=== PATIENT | female | born 1950 | race African-American/Black ===

== ENCOUNTER 2017-04-01 15:48 | Emergency (ER) | payer OTHER ==
[2017-04-01 16:05] VITALS: BP 156/77; PULSE 79; TEMP 98; BMI 27.4
--- NOTE | 2017-04-01 16:51 | PDOC ---
History of Present Illness - General Chief Complaint: Injury Stated Complaint: LT FINGER WOUND Time Seen by Provider: 04/01/17 16:48 History Source: Patient Exam Limitations: No Limitations - History of Present Illness Initial Comments: 04/01/17 16:51 67 yr female with ring stuck on the finger for 7 days right middle digit. 04/01/17 17:08 Past History - Past Medical History Allergies/Adverse Reactions: Allergies Allergy/AdvReac Type Severity Reaction Status Date / Time No Known Allergies Allergy Verified 04/01/17 16:05 Home Medications: Ambulatory Orders Donepezil HCl [Aricept -] 10 g PO ASDIR 04/01/17 Omeprazole Magnesium [Prilosec Otc] 20 mg PO ASDIR 04/01/17 Anemia: No Asthma: No Cancer: No Cardiac Disorders: No CVA: No COPD: No CHF: No Dementia: No Diabetes: No GI Disorders: Yes (GERD) Disorders: No HTN: Yes Hypercholesterolemia: No Liver Disease: No Seizures: No Thyroid Disease: No - Surgical History Abdominal Surgery: Yes (Abdominoplasty) Appendectomy: Yes Cardiac Surgery: No Cholecystectomy: No Lung Surgery: No Neurologic Surgery: No Orthopedic Surgery: Yes (Left Shoulder Arthroscopy,Fx Left Tibia) - Suicide/Smoking/Psychosocial Hx Smoking Status: No Smoking History: Never smoked Have you smoked in the past 12 months: No Number of Cigarettes Smoked Daily: 0 Information on smoking cessation initiated: No Hx Alcohol Use: No Drug/Substance Use Hx: No Substance Use Type: None Hx Substance Use Treatment: No Review of Systems - Review of Systems Able to Perform ROS?: Yes Is the patient limited Qatari proficient: No Musculoskeletal: Yes: Symptoms Reported *Physical Exam - Vital Signs Last Vital Signs Temp Pulse Resp BP Pulse Ox 98 F 79 18 156/77 99 04/01/17 16:01 04/01/17 16:01 04/01/17 16:01 04/01/17 16:01 04/01/17 16:01 - Physical Exam General Appearance: Yes: Nourished, Appropriately Dressed HEENT: positive: EOMI, DANNY Extremity: positive: Normal Capillary Refill, Other (right middle digit with ring that is stuck ) Integumentary: positive: Normal Color, Dry, Warm Neurologic: positive: Fully Oriented, Alert, Normal Mood/Affect, Normal Response , Motor Strength 5/5 Procedures - Consent Consent obtained: Verbal, From Patient (consent obtained to remove yellow colored ring with white/clear colored stones) Medical Decision Making - Medical Decision Making 04/01/17 17:09 cc: ring finger with ring stuck on it for 7 days right middle digit. unable to remove at home. pt gave verbal consent to remove the yellow ring with the ring cutter. ring removed with the manual ring cutter nv intact pt tolerated procedure well. 04/01/17 17:18 *DC/Admit/Observation/Transfer Diagnosis at time of Disposition: Foreign body finger - Discharge Dispostion Disposition: HOME Condition at time of disposition: Good - Referrals - Patient Instructions Additional Instructions: please keep the area clean and dry with soap and water apply bacitracin and bandaid once a day for 3 days until healed - Post Discharge Activity
== END 2017-04-01 17:23 | disposition home or self-care (01) ==
LOC: JERFT 15:48
DX: S60.442A External constriction of right middle finger, initial encounter (principal); W49.04XA Ring or other jewelry causing external constriction, initial encounter; Y93.89 Activity, other specified; Y92.038 Other place in apartment as the place of occurrence of the external cause
CPT/HCPCS: 99281-25

== ENCOUNTER 2020-10-26 19:55 | Inpatient (IN) | payer OTHER ==
[2020-10-26 22:08] LABS: BASO % 0.3 % (0-2.0); EOS % 0.1 % (0-4.5); HEMATOCRIT 33.9 % (32.4-45.2); HEMOGLOBIN 11.5 GM/dL (10.7-15.3); LYMPH % 18.8 % (8-40); MCH 29.9 pg (25.7-33.7); MEAN CELL VOLUME 87.9 fl (80-96); MEAN PLT VOLUME 9.2 fl (7.5-11.1); MONO % 10.2 % (3.8-10.2); NEUT % 70.6 % (42.8-82.8); PLATELET COUNT 247 10^3/uL (134-434); RBC 3.85 M/mm3 (3.60-5.2); RDW 14.2 % (11.6-15.6); WHITE BLOOD COUNT 11.8 K/mm3 (4.0-10.0)
[2020-10-26 22:09] LABS: URINE APPEARANCE CLEAR; URINE BILIRUBIN NEGATIVE (NEGATIVE); URINE COLOR YELLOW; URINE GLUCOSE (UA) NEGATIVE (NEGATIVE); URINE KETONE NEGATIVE (NEGATIVE); URINE LEUK ESTERASE NEGATIVE (NEGATIVE); URINE NITRITE NEGATIVE (NEGATIVE); URINE PROTEIN TRACE (NEGATIVE)
[2020-10-26] MEDS: SODIUM CHLORIDE 1,000 ML IV SCH (22:13)
[2020-10-26 22:22] LABS: INR 1.17 (0.83-1.09); PROTHROMBIN TIME (PATIENT) 14.4 SEC (9.7-13.0)
[2020-10-26 22:24] LABS: ACTIVATED PTT 24.8 SECONDS (25.2-36.5)
[2020-10-26 22:27] LABS: CHLORIDE 108 mmol/L (98-107); SODIUM 143 mmol/L (136-145)
[2020-10-26 22:30] LABS: ALBUMIN 3.1 g/dl (3.4-5.0); CALCIUM 8.4 mg/dL (8.5-10.1)
[2020-10-26 22:31] LABS: ANION GAP 6 MMOL/L (8-16); BLOOD UREA NITROGEN 22.1 mg/dL (7-18); CO2 29 mmol/L (21-32); GLUCOSE,RANDOM 87 mg/dL (74-106)
[2020-10-26 22:33] LABS: SGOT/AST 38 U/L (15-37); SGPT/ALT 42 U/L (13-61)
[2020-10-26 22:34] LABS: CHOLESTEROL 169 mg/dL (50-200); CREATININE 1.4 mg/dL (0.55-1.3); TRIGLYCERIDES 81 mg/dL (0-150)
[2020-10-26 22:35] LABS: BILIRUBIN,TOTAL 0.3 mg/dL (0.2-1); HDL CHOLESTEROL 52 mg/dL (40-60); LDL CHOLESTEROL (ONLY SJRH) 94 mg/dL (5-100)
[2020-10-26 22:36] LABS: ALK PHOS 76 U/L (45-117)
[2020-10-26] MEDS ORDERED: D5-1/2NS+10 MEQ KCL - 10 MEQ/1,000 ML INFUS.BAG IV SCH (23:45)
[2020-10-27] MEDS: PANTOPRAZOLE 40 MG TABLET PO SCH (09:53)
[2020-10-27 10:00] LABS: BASO % 0.6 % (0-2.0); EOS % 0.1 % (0-4.5); LYMPH % 23.1 % (8-40); MCH 29.6 pg (25.7-33.7); MCHC 33.4 g/dl (32.0-36.0); MEAN CELL VOLUME 88.7 fl (80-96); MEAN PLT VOLUME 9.4 fl (7.5-11.1); NEUT % 68.2 % (42.8-82.8); PLATELET COUNT 243 10^3/uL (134-434); RBC 4.06 M/mm3 (3.60-5.2); RDW 13.9 % (11.6-15.6); WHITE BLOOD COUNT 10.9 K/mm3 (4.0-10.0)
[2020-10-27] MEDS ORDERED: D5-1/2NS+10 MEQ KCL - 10 MEQ/1,000 ML INFUS.BAG IV SCH (11:19)
[2020-10-27 14:00] LABS: CALCIUM 8.7 mg/dL (8.5-10.1)
[2020-10-27 14:01] LABS: BLOOD UREA NITROGEN 15.1 mg/dL (7-18)
[2020-10-27 14:04] LABS: CREATININE 1.2 mg/dL (0.55-1.3)
[2020-10-27] MEDS: D5-1/2NS+10 MEQ KCL - 10 MEQ/1,000 ML INFUS.BAG IV SCH (18:48)
[2020-10-27] MEDS ORDERED: levETIRAcetam 500 MG/5 ML INJECTION VIAL IVPB ONE (21:53)
[2020-10-28] MEDS: levETIRAcetam 500 MG TABLET (FP) PO SCH ×2 (07:56→22:14)
[2020-10-28 09:03] LABS: BASO % 0.4 % (0-2.0); EOS % 0.6 % (0-4.5); HEMATOCRIT 35.3 % (32.4-45.2); HEMOGLOBIN 11.8 GM/dL (10.7-15.3); LYMPH % 35.8 % (8-40); MCH 29.3 pg (25.7-33.7); MCHC 33.5 g/dl (32.0-36.0); MEAN CELL VOLUME 87.4 fl (80-96); MEAN PLT VOLUME 9.1 fl (7.5-11.1); MONO % 8.3 % (3.8-10.2); NEUT % 54.9 % (42.8-82.8); PLATELET COUNT 230 10^3/uL (134-434); RBC 4.04 M/mm3 (3.60-5.2); WHITE BLOOD COUNT 8.8 K/mm3 (4.0-10.0)
[2020-10-28 09:10] LABS: BLOOD UREA NITROGEN 10.5 mg/dL (7-18); CALCIUM 8.7 mg/dL (8.5-10.1)
[2020-10-28 09:13] LABS: CREATININE 1.2 mg/dL (0.55-1.3)
[2020-10-28] MEDS: PANTOPRAZOLE 40 MG TABLET PO SCH (09:21)
[2020-10-28] MEDS: SODIUM CHLORIDE 1,000 ML IV SCH ×2 (09:21→22:14)
[2020-10-28] MEDS: PARoxetine HCL 10 MG TABLET PO SCH (12:08)
[2020-10-28] MEDS ORDERED: PT OWN MED DRAWER 7, Y5N ONE (13:22)
[2020-10-28] MEDS: D5-1/2NS+10 MEQ KCL - 10 MEQ/1,000 ML INFUS.BAG IV SCH (18:38)
[2020-10-28] MEDS ORDERED: QUEtiapine FUMARATE 100 MG TABLET (FP) PO SCH ×3 (21:35→22:00)
[2020-10-28] MEDS ORDERED: MIRTAZAPINE 15 MG TABLET (FP) PO SCH (22:00)
[2020-10-28] MEDS: QUEtiapine FUMARATE 100 MG TABLET (FP) PO SCH ×2 (22:13→22:18)
[2020-10-28 23:18] VITALS: BMI 22.2
[2020-10-29 06:44] VITALS: PULSE 80
[2020-10-29 08:46] LABS: BASO % 0.4 % (0-2.0); EOS % 1.6 % (0-4.5); HEMATOCRIT 33.8 % (32.4-45.2); HEMOGLOBIN 11.4 GM/dL (10.7-15.3); LYMPH % 34.3 % (8-40); MCH 29.6 pg (25.7-33.7); MCHC 33.8 g/dl (32.0-36.0); MEAN CELL VOLUME 87.7 fl (80-96); MEAN PLT VOLUME 8.9 fl (7.5-11.1); MONO % 8.6 % (3.8-10.2); NEUT % 55.1 % (42.8-82.8); PLATELET COUNT 213 10^3/uL (134-434); RBC 3.85 M/mm3 (3.60-5.2); RDW 13.7 % (11.6-15.6); WHITE BLOOD COUNT 8.8 K/mm3 (4.0-10.0)
[2020-10-29] MEDS ORDERED: PT OWN MED DRAWER 7, Y5N ONE ×2 (09:15→11:49)
[2020-10-29] MEDS: levETIRAcetam 500 MG TABLET (FP) PO SCH (09:18)
[2020-10-29] MEDS: PANTOPRAZOLE 40 MG TABLET PO SCH (09:18)
[2020-10-29 09:31] VITALS: BP 131/74; TEMP 98.5
[2020-10-29 09:31] LABS: CALCIUM 8.6 mg/dL (8.5-10.1)
[2020-10-29 09:35] LABS: CREATININE 1.1 mg/dL (0.55-1.3)
[2020-10-29] MEDS: PARoxetine HCL 10 MG TABLET PO SCH (11:50)
[2020-10-29] MEDS ORDERED: levETIRAcetam 500 MG TABLET (FP) PO SCH (22:00)
[2020-10-30 00:10] LABS: CK-MM 100 % (97-100)
== END 2020-10-29 17:00 | disposition home health service (06) | DRG 101 ==
LOC: JER 19:55 → JERBED 23:00 → J6S 10-27 01:49
PROVIDERS: ADMIT Internal Medicine; ATTEND Internal Medicine
DX: G40.211 Localization-related (focal) (partial) symptomatic epilepsy and epileptic syndromes with complex partial seizures, intractable, with status epilepticus (principal); M62.82 Rhabdomyolysis; N17.9 Acute kidney failure, unspecified; G30.1 Alzheimer's disease with late onset; R63.0 Anorexia; R41.82 Altered mental status, unspecified; I10 Essential (primary) hypertension; G83.84 Todd's paralysis (postepileptic); D72.829 Elevated white blood cell count, unspecified; K21.9 Gastro-esophageal reflux disease without esophagitis; F02.80 Dementia in other diseases classified elsewhere, unspecified severity, without behavioral disturbance, psychotic disturbance, mood disturbance, and anxiety
CPT/HCPCS: 36415; 70450-TC; 71045-TC-FY; 80048; 80053; 80061; 81003; 82550; 82552; 82553; 82607; 83036; 84443; 84484; 85025; 85610; 85730; 86780; 86850; 86900; 86901; 87086; 93005; 93010; 97116-GP; 97162-GP; 99285-25; C9803; U0003; U0005

== ENCOUNTER 2020-11-08 13:11 | Inpatient (IN) | payer OTHER ==
[2020-11-08] MEDS ORDERED: LORazepam 2 MG/ML SDV VIAL IVPUSH ONE (14:16)
[2020-11-08 14:35] LABS: BASO % 0.1 % (0-2.0); HEMATOCRIT 34.9 % (32.4-45.2); HEMOGLOBIN 11.9 GM/dL (10.7-15.3); MCHC 34.1 g/dl (32.0-36.0); MEAN PLT VOLUME 8.7 fl (7.5-11.1); MONO % 4.2 % (3.8-10.2); NEUT % 89.7 % (42.8-82.8); PLATELET COUNT 316 10^3/uL (134-434); RBC 3.96 M/mm3 (3.60-5.2); RDW 13.7 % (11.6-15.6); WHITE BLOOD COUNT 10.3 K/mm3 (4.0-10.0)
[2020-11-08] MEDS ORDERED: SODIUM CHLORIDE 0.9% 500 ML INFUS.BAG IV ONE (14:36)
[2020-11-08] MEDS ORDERED: CEFTRIAXONE 1,000 MG in DEXTROSE 5%-WATER - 50 ML IVPB ONE (14:39)
[2020-11-08 14:46] LABS: CHLORIDE 103 mmol/L (98-107); SODIUM 139 mmol/L (136-145)
[2020-11-08 14:48] LABS: ALBUMIN 3.3 g/dl (3.4-5.0); ANION GAP 7 MMOL/L (8-16); CALCIUM 9.5 mg/dL (8.5-10.1); CO2 29 mmol/L (21-32); GLUCOSE,RANDOM 130 mg/dL (74-106)
[2020-11-08 14:49] LABS: BLOOD UREA NITROGEN 14.7 mg/dL (7-18)
[2020-11-08 14:52] LABS: CREATININE 1.3 mg/dL (0.55-1.3); SGOT/AST 14 U/L (15-37); SGPT/ALT 21 U/L (13-61)
[2020-11-08 14:53] LABS: BILIRUBIN,TOTAL 0.5 mg/dL (0.2-1); TOT PROT 7.8 g/dl (6.4-8.2)
[2020-11-08 14:54] LABS: ALK PHOS 92 U/L (45-117)
[2020-11-08] MEDS ORDERED: CEFTRIAXONE 1 GM/50 ML BAG ONE (14:54)
[2020-11-08 15:11] LABS: LACTIC ACID 2.5 mmol/L (0.4-2.0)
[2020-11-08 15:12] LABS: MAGNESIUM 2.1 mg/dL (1.8-2.4)
[2020-11-08 15:44] LABS: EPI CELLS 29 /uL (0-25.1); HYALINE CASTS 357 /uL (0-3.1); PH,URINE 7.5 (5.0-8.0); URINE APPEARANCE TURBID; URINE BACTERIA 2795 /uL (0-1359); URINE BILIRUBIN NEGATIVE (NEGATIVE); URINE COLOR YELLOW; URINE GLUCOSE (UA) NEGATIVE (NEGATIVE); URINE KETONE NEGATIVE (NEGATIVE); URINE LEUK ESTERASE 3+ (NEGATIVE); URINE NITRITE NEGATIVE (NEGATIVE); URINE PROTEIN 2+ (NEGATIVE); URINE WBC 30677 /uL (0-25.8)
[2020-11-08 15:45] LABS: URINE RBC 416.3 /uL (0-23.9)
[2020-11-08 15:58] LABS: URINE CRYSTALS NONE SEEN /hpf
[2020-11-08] MEDS ORDERED: D5-1/2NS+10 MEQ KCL - 10 MEQ/1,000 ML INFUS.BAG IV SCH (18:15)
[2020-11-08] MEDS: PANTOPRAZOLE 40 MG TABLET PO SCH (18:41)
[2020-11-08] MEDS ORDERED: ENOXAPARIN NA (PORCINE) 40 MG/0.4 ML DISP.SYRIN SQ ONE (18:59)
[2020-11-08] MEDS: ENOXAPARIN NA (PORCINE) 40 MG/0.4 ML DISP.SYRIN SQ SCH (19:02)
[2020-11-08] MEDS: D5-1/2NS+10 MEQ KCL - 10 MEQ/1,000 ML INFUS.BAG IV SCH (22:20)
[2020-11-08] MEDS: levETIRAcetam 500 MG TABLET (FP) PO SCH (22:50)
[2020-11-08] MEDS: MIRTAZAPINE 15 MG TABLET (FP) PO SCH (22:50)
[2020-11-09 01:24] VITALS: BMI 22.1
[2020-11-09] MEDS ORDERED: PT OWN MED DRAWER 7, Y5N ONE (09:36)
[2020-11-09 09:50] LABS: BASO % 0.2 % (0-2.0); EOS % 0.1 % (0-4.5); HEMATOCRIT 31.6 % (32.4-45.2); HEMOGLOBIN 10.7 GM/dL (10.7-15.3); LYMPH % 22.6 % (8-40); MCH 29.8 pg (25.7-33.7); MCHC 33.8 g/dl (32.0-36.0); MEAN CELL VOLUME 88.4 fl (80-96); MEAN PLT VOLUME 8.8 fl (7.5-11.1); MONO % 5.3 % (3.8-10.2); NEUT % 71.8 % (42.8-82.8); PLATELET COUNT 281 10^3/uL (134-434); RBC 3.58 M/mm3 (3.60-5.2); WHITE BLOOD COUNT 10.4 K/mm3 (4.0-10.0)
[2020-11-09] MEDS: levETIRAcetam 500 MG TABLET (FP) PO SCH ×2 (10:11→21:48)
[2020-11-09] MEDS: ENOXAPARIN NA (PORCINE) 40 MG/0.4 ML DISP.SYRIN SQ SCH (10:11)
[2020-11-09] MEDS: PANTOPRAZOLE 40 MG TABLET PO SCH (10:11)
[2020-11-09 10:25] LABS: BLOOD UREA NITROGEN 17.5 mg/dL (7-18); CALCIUM 8.8 mg/dL (8.5-10.1)
[2020-11-09 10:28] LABS: CREATININE 1.2 mg/dL (0.55-1.3)
[2020-11-09] MEDS: PARoxetine HCL 10 MG TABLET PO SCH (11:36)
[2020-11-09] MEDS ORDERED: cefTRIAXone SODIUM 1 GM VIAL ONE (13:25)
[2020-11-09] MEDS ORDERED: DEXTROSE 5%-WATER - 50 ML IVPB ONE (13:25)
[2020-11-09] MEDS: CEFTRIAXONE 1 GM in DEXTROSE 5%-WATER - 50 ML IVPB SCH (13:31)
[2020-11-09] MEDS: D5-1/2NS+10 MEQ KCL - 10 MEQ/1,000 ML INFUS.BAG IV SCH (21:47)
[2020-11-09] MEDS: MIRTAZAPINE 15 MG TABLET (FP) PO SCH (21:48)
[2020-11-10] MEDS ORDERED: cefTRIAXone SODIUM 1 GM VIAL ONE (09:21)
[2020-11-10] MEDS: CEFTRIAXONE 1 GM in DEXTROSE 5%-WATER - 50 ML IVPB SCH (09:26)
[2020-11-10] MEDS: ENOXAPARIN NA (PORCINE) 40 MG/0.4 ML DISP.SYRIN SQ SCH (09:27)
[2020-11-10] MEDS: PARoxetine HCL 10 MG TABLET PO SCH (09:27)
[2020-11-10] MEDS: levETIRAcetam 500 MG TABLET (FP) PO SCH ×2 (09:27→21:20)
[2020-11-10] MEDS: PANTOPRAZOLE 40 MG TABLET PO SCH (09:27)
[2020-11-10] MEDS: MIRTAZAPINE 15 MG TABLET (FP) PO SCH (21:20)
[2020-11-10] MEDS: D5-1/2NS+10 MEQ KCL - 10 MEQ/1,000 ML INFUS.BAG IV SCH (22:23)
[2020-11-11] MEDS ORDERED: PT OWN MED DRAWER 7, Y5N ONE ×2 (05:41→10:32)
[2020-11-11 08:53] LABS: BASO % 0.4 % (0-2.0); EOS % 1.2 % (0-4.5); HEMATOCRIT 29.9 % (32.4-45.2); MCH 29.7 pg (25.7-33.7); MCHC 33.6 g/dl (32.0-36.0); MEAN CELL VOLUME 88.4 fl (80-96); MEAN PLT VOLUME 8.1 fl (7.5-11.1); MONO % 7.9 % (3.8-10.2); NEUT % 55.5 % (42.8-82.8); PLATELET COUNT 265 10^3/uL (134-434); RBC 3.39 M/mm3 (3.60-5.2); RDW 13.6 % (11.6-15.6); WHITE BLOOD COUNT 6.4 K/mm3 (4.0-10.0)
[2020-11-11 09:17] LABS: CALCIUM 8.8 mg/dL (8.5-10.1)
[2020-11-11 09:18] LABS: BLOOD UREA NITROGEN 8.4 mg/dL (7-18)
[2020-11-11 09:21] LABS: CREATININE 0.9 mg/dL (0.55-1.3)
[2020-11-11] MEDS ORDERED: DEXTROSE 5%-WATER - 50 ML IVPB ONE (10:34)
[2020-11-11] MEDS ORDERED: cefTRIAXone SODIUM 1 GM VIAL ONE (10:34)
[2020-11-11] MEDS: CEFTRIAXONE 1 GM in DEXTROSE 5%-WATER - 50 ML IVPB SCH (10:42)
[2020-11-11] MEDS: PANTOPRAZOLE 40 MG TABLET PO SCH (10:46)
[2020-11-11] MEDS: levETIRAcetam 500 MG TABLET (FP) PO SCH ×2 (10:46→21:46)
[2020-11-11] MEDS: MULTIVITAMINS THER W-MINERALS COMBO TABLET (FP) PO SCH (10:47)
[2020-11-11] MEDS: PARoxetine HCL 10 MG TABLET PO SCH (10:47)
[2020-11-11] MEDS: ENOXAPARIN NA (PORCINE) 40 MG/0.4 ML DISP.SYRIN SQ SCH (10:47)
[2020-11-11] MEDS: D5-1/2NS+10 MEQ KCL - 10 MEQ/1,000 ML INFUS.BAG IV SCH (21:46)
[2020-11-11] MEDS: MIRTAZAPINE 15 MG TABLET (FP) PO SCH (21:46)
[2020-11-12 08:21] LABS: BASO % 0.4 % (0-2.0); HEMATOCRIT 30.9 % (32.4-45.2); HEMOGLOBIN 10.6 GM/dL (10.7-15.3); LYMPH % 45.4 % (8-40); MCHC 34.1 g/dl (32.0-36.0); MEAN CELL VOLUME 87.9 fl (80-96); MEAN PLT VOLUME 8.6 fl (7.5-11.1); MONO % 7.5 % (3.8-10.2); NEUT % 44.7 % (42.8-82.8); PLATELET COUNT 277 10^3/uL (134-434); RBC 3.52 M/mm3 (3.60-5.2); RDW 13.5 % (11.6-15.6); WHITE BLOOD COUNT 6.8 K/mm3 (4.0-10.0)
[2020-11-12 08:51] LABS: CALCIUM 8.8 mg/dL (8.5-10.1)
[2020-11-12 08:52] LABS: BLOOD UREA NITROGEN 8.4 mg/dL (7-18)
[2020-11-12 08:55] LABS: CREATININE 0.8 mg/dL (0.55-1.3)
[2020-11-12] MEDS ORDERED: CEFUROXIME AXETIL 500 MG TABLET PO SCH (10:00)
[2020-11-12] MEDS ORDERED: PT OWN MED DRAWER 7, Y5N ONE (10:28)
[2020-11-12] MEDS: ENOXAPARIN NA (PORCINE) 40 MG/0.4 ML DISP.SYRIN SQ SCH (10:40)
[2020-11-12] MEDS: levETIRAcetam 500 MG TABLET (FP) PO SCH (11:35)
[2020-11-12] MEDS: PARoxetine HCL 10 MG TABLET PO SCH (11:35)
[2020-11-12] MEDS: PANTOPRAZOLE 40 MG TABLET PO SCH (11:35)
[2020-11-12] MEDS: MULTIVITAMINS THER W-MINERALS COMBO TABLET (FP) PO SCH (11:35)
[2020-11-12 14:55] VITALS: BP 129/53; PULSE 75; TEMP 98.4
== END 2020-11-12 16:48 | disposition home or self-care (01) | DRG 689 ==
LOC: JER 13:11 → JERBED 14:37 → J6S 21:27
PROVIDERS: ADMIT Internal Medicine; ATTEND Internal Medicine
DX: N39.0 Urinary tract infection, site not specified (principal); G93.41 Metabolic encephalopathy; M62.82 Rhabdomyolysis; E87.2 Acidosis; I69.354 Hemiplegia and hemiparesis following cerebral infarction affecting left non-dominant side; B95.1 Streptococcus, group B, as the cause of diseases classified elsewhere; G40.909 Epilepsy, unspecified, not intractable, without status epilepticus; I10 Essential (primary) hypertension; K21.9 Gastro-esophageal reflux disease without esophagitis; M62.81 Muscle weakness (generalized); R41.82 Altered mental status, unspecified; D72.829 Elevated white blood cell count, unspecified; G47.00 Insomnia, unspecified; F41.9 Anxiety disorder, unspecified; G83.84 Todd's paralysis (postepileptic); R26.81 Unsteadiness on feet; R50.9 Fever, unspecified; G30.9 Alzheimer's disease, unspecified; F02.80 Dementia in other diseases classified elsewhere, unspecified severity, without behavioral disturbance, psychotic disturbance, mood disturbance, and anxiety
CPT/HCPCS: 36415; 70450-TC; 80048; 80053; 80177; 81003; 82550; 82553; 82962; 83605; 83735; 84484; 85025; 87040; 87077; 87086; 93005; 93010; 97116-GP; 97162-GP; 99285-25; C9803; U0003; U0005

== ENCOUNTER 2020-11-25 23:56 | Observation (INO) | payer OTHER ==
[2020-11-26] MEDS ORDERED: levETIRAcetam 500 MG/5 ML ORAL SOLUTION (UNIT-DOSE CUPS) PO ONE (00:34)
[2020-11-26] MEDS ORDERED: levETIRAcetam 500 MG TABLET (FP) PO ONE ×3 (00:57→13:36)
[2020-11-26] MEDS ORDERED: levETIRAcetam 500 MG/5 ML INJECTION VIAL IVPB ONE ×2 (01:05→01:49)
[2020-11-26 02:06] LABS: BASO % 0.3 % (0-2.0); EOS % 0.9 % (0-4.5); HEMATOCRIT 33.6 % (32.4-45.2); HEMOGLOBIN 11.2 GM/dL (10.7-15.3); LYMPH % 30.4 % (8-40); MCHC 33.2 g/dl (32.0-36.0); MEAN CELL VOLUME 87.3 fl (80-96); MEAN PLT VOLUME 8.2 fl (7.5-11.1); MONO % 8.2 % (3.8-10.2); NEUT % 60.2 % (42.8-82.8); PLATELET COUNT 296 10^3/uL (134-434); RBC 3.85 M/mm3 (3.60-5.2); RDW 14.3 % (11.6-15.6); WHITE BLOOD COUNT 9.1 K/mm3 (4.0-10.0)
[2020-11-26 02:09] LABS: PH,URINE 7.5 (5.0-8.0); URINE APPEARANCE CLEAR; URINE BILIRUBIN NEGATIVE (NEGATIVE); URINE COLOR YELLOW; URINE GLUCOSE (UA) NEGATIVE (NEGATIVE); URINE KETONE NEGATIVE (NEGATIVE); URINE LEUK ESTERASE NEGATIVE (NEGATIVE); URINE NITRITE NEGATIVE (NEGATIVE); URINE PROTEIN NEGATIVE (NEGATIVE); URINE UROBILINOGEN 0.2 mg/dL (0.2-1.0)
[2020-11-26 02:14] LABS: INR 1.18 (0.83-1.09); PROTHROMBIN TIME (PATIENT) 13.2 SEC (9.7-13.0)
[2020-11-26 02:17] LABS: ACTIVATED PTT 28.6 SECONDS (25.2-36.5)
[2020-11-26 02:23] LABS: CHLORIDE 108 mmol/L (98-107); SODIUM 142 mmol/L (136-145)
[2020-11-26 02:25] LABS: CALCIUM 10.1 mg/dL (8.5-10.1)
[2020-11-26 02:26] LABS: ALBUMIN 3.1 g/dl (3.4-5.0); ANION GAP 7 MMOL/L (8-16); BLOOD UREA NITROGEN 10.2 mg/dL (7-18); CO2 28 mmol/L (21-32); GLUCOSE,RANDOM 102 mg/dL (74-106)
[2020-11-26 02:31] LABS: BILIRUBIN,TOTAL 0.3 mg/dL (0.2-1); CREATININE 1.1 mg/dL (0.55-1.3); SGOT/AST 19 U/L (15-37); SGPT/ALT 18 U/L (13-61); TOT PROT 7.4 g/dl (6.4-8.2)
[2020-11-26 02:32] LABS: ALK PHOS 78 U/L (45-117)
[2020-11-26 03:04] LABS: MAGNESIUM 2.1 mg/dL (1.8-2.4)
[2020-11-26] MEDS ORDERED: ACETAMINOPHEN 325 MG TABLET (FP) PO PRN (07:42)
[2020-11-26] MEDS ORDERED: HEPARIN NA (PORCINE) 5,000 UNITS/ML 1ML VIAL ONE ×2 (11:00→17:36)
[2020-11-26] MEDS: HEPARIN NA (PORCINE) 5,000 UNITS/ML 1ML VIAL SQ SCH ×2 (11:05→17:56)
[2020-11-26] MEDS ORDERED: CEFTRIAXONE 1 GM in DEXTROSE 5%-WATER - 50 ML IVPB SCH (12:30)
[2020-11-26] MEDS ORDERED: MIRTAZAPINE 15 MG TABLET (FP) PO SCH (22:00)
[2020-11-26] MEDS ORDERED: LORazepam 2 MG/ML SDV VIAL IVPUSH SCH (22:00)
[2020-11-27] MEDS: HEPARIN NA (PORCINE) 5,000 UNITS/ML 1ML VIAL SQ SCH ×3 (03:07→17:23)
[2020-11-27] MEDS ORDERED: MIRTAZAPINE 15 MG TABLET (FP) PO PRN (05:59)
[2020-11-27] MEDS: levETIRAcetam 500 MG/5 ML INJECTION VIAL IVPB SCH ×2 (09:33→22:05)
[2020-11-27] MEDS: PARoxetine HCL 10 MG TABLET PO SCH (09:33)
[2020-11-27] MEDS ORDERED: PHENOBARBITAL IVPB SCH (10:00)
[2020-11-27] MEDS ORDERED: PHENobarbital SODIUM 130 MG/1 ML VIAL IV SCH (10:00)
[2020-11-27] MEDS ORDERED: PHENobarbital SODIUM 65 MG/1 ML VIAL IVPB SCH (10:00)
[2020-11-27] MEDS ORDERED: SODIUM CHLORIDE IVPB SCH (10:00)
[2020-11-27 11:59] LABS: BASO % 0.6 % (0-2.0); HEMATOCRIT 33.8 % (32.4-45.2); HEMOGLOBIN 11.3 GM/dL (10.7-15.3); LYMPH % 39.1 % (8-40); MCH 29.5 pg (25.7-33.7); MCHC 33.4 g/dl (32.0-36.0); MEAN CELL VOLUME 88.3 fl (80-96); MEAN PLT VOLUME 8.9 fl (7.5-11.1); MONO % 8.6 % (3.8-10.2); NEUT % 50.7 % (42.8-82.8); PLATELET COUNT 270 10^3/uL (134-434); RBC 3.83 M/mm3 (3.60-5.2); RDW 14.6 % (11.6-15.6); WHITE BLOOD COUNT 5.8 K/mm3 (4.0-10.0)
[2020-11-27 12:24] LABS: ALBUMIN 3.2 g/dl (3.4-5.0); CALCIUM 8.9 mg/dL (8.5-10.1)
[2020-11-27 12:25] LABS: BLOOD UREA NITROGEN 10.1 mg/dL (7-18); MAGNESIUM 2.3 mg/dL (1.8-2.4)
[2020-11-27 12:28] LABS: BILIRUBIN,TOTAL 0.4 mg/dL (0.2-1); PHOSPHOROUS 3.2 mg/dL (2.5-4.9)
[2020-11-27 12:29] LABS: TOT PROT 7.2 g/dl (6.4-8.2)
[2020-11-27 20:52] VITALS: BMI 20.5
[2020-11-28] MEDS: HEPARIN NA (PORCINE) 5,000 UNITS/ML 1ML VIAL SQ SCH ×3 (01:59→17:45)
[2020-11-28] MEDS ORDERED: PT OWN MED DRAWER 7, Y5N ONE ×2 (10:46→21:50)
[2020-11-28] MEDS: levETIRAcetam 500 MG/5 ML ORAL SOLUTION (UNIT-DOSE CUPS) PO SCH ×2 (10:47→21:55)
[2020-11-28] MEDS: PHENobarbital 20 MG/5 ML UNIT-DOSE CUP PO SCH (10:48)
[2020-11-28] MEDS: PARoxetine HCL 10 MG TABLET PO SCH (10:49)
[2020-11-29] MEDS: HEPARIN NA (PORCINE) 5,000 UNITS/ML 1ML VIAL SQ SCH ×2 (01:31→10:21)
[2020-11-29] MEDS: PARoxetine HCL 10 MG TABLET PO SCH (10:20)
[2020-11-29] MEDS: levETIRAcetam 500 MG/5 ML ORAL SOLUTION (UNIT-DOSE CUPS) PO SCH (10:21)
[2020-11-29] MEDS: PHENobarbital 20 MG/5 ML UNIT-DOSE CUP PO SCH (10:21)
[2020-11-29] MEDS ORDERED: PHENobarbital 20 MG/5 ML UNIT-DOSE CUP PO SCH (10:40)
[2020-11-29 11:15] VITALS: BP 142/75; PULSE 72; TEMP 97.8
[2020-11-29] MEDS ORDERED: HEPARIN NA (PORCINE) 5,000 UNITS/ML 1ML VIAL SQ SCH (14:00)
== END 2020-11-29 16:19 | disposition home health service (06) ==
LOC: JER 23:56 → UNDOADMOB 11-26 03:23 → INTOOBSV 11-26 03:23 → JERBED 11-26 03:23 → J7W 11-26 18:51
PROVIDERS: ADMIT Internal Medicine; ATTEND Internal Medicine
PROC: 3E033GC Introduction of Other Therapeutic Substance into Peripheral Vein, Percutaneous Approach (ICD-10-PCS; principal; 2020-11-26)
PROC: 3E033NZ Introduction of Analgesics, Hypnotics, Sedatives into Peripheral Vein, Percutaneous Approach (ICD-10-PCS; 2020-11-26)
PROC: 3E013GC Introduction of Other Therapeutic Substance into Subcutaneous Tissue, Percutaneous Approach (ICD-10-PCS; 2020-11-26)
DX: R41.82 Altered mental status, unspecified (principal); G40.209 Localization-related (focal) (partial) symptomatic epilepsy and epileptic syndromes with complex partial seizures, not intractable, without status epilepticus; F03.90 Unspecified dementia, unspecified severity, without behavioral disturbance, psychotic disturbance, mood disturbance, and anxiety; I10 Essential (primary) hypertension; I69.354 Hemiplegia and hemiparesis following cerebral infarction affecting left non-dominant side; K21.9 Gastro-esophageal reflux disease without esophagitis; I45.19 Other right bundle-branch block; F32.A Depression, unspecified; M62.81 Muscle weakness (generalized); Z88.6 Allergy status to analgesic agent
CPT/HCPCS: 36415; 70450-TC; 71045-TC-FY; 80053; 80177; 81003; 82550; 82553; 83735; 84100; 84443; 84484; 85025; 85610; 85730; 87086; 93005; 93010; 96372; 96374; 96375; 96376; 97116-GP; 99285-25; C9803; G0378; J1644; U0003; U0005

== ENCOUNTER 2021-05-24 13:44 | Inpatient (IN) | payer OTHER ==
[2021-05-24] MEDS ORDERED: SODIUM CHLORIDE 1,000 ML IV ONE (15:59)
[2021-05-24 16:52] LABS: VENOUS BASE EXCESS 2.3 mmol/L (-2-2); VENOUS PCO2 54.7 mmHg (38-52); VENOUS PH 7.346 (7.310-7.410)
[2021-05-24 16:53] LABS: HEMATOCRIT 40.4 % (32.4-45.2); HEMOGLOBIN 13.4 GM/dL (10.7-15.3); RBC 4.45 M/mm3 (3.60-5.2); WHITE BLOOD COUNT 11.6 K/mm3 (4.0-10.0)
[2021-05-24 16:54] LABS: BASO % 0.3 % (0-2.0); LYMPH % 17.7 % (8-40); MCHC 33.1 g/dl (32.0-36.0); MEAN CELL VOLUME 90.8 fl (80-96); MONO % 6.7 % (3.8-10.2); NEUT % 75.3 % (42.8-82.8); PLATELET COUNT 271 10^3/uL (134-434); RDW 15.8 % (11.6-15.6)
[2021-05-24 17:16] LABS: CHLORIDE 118 mmol/L (98-107); SODIUM 149 mmol/L (136-145)
[2021-05-24 17:17] LABS: CALCIUM 8.5 mg/dL (8.5-10.1)
[2021-05-24 17:18] LABS: BLOOD UREA NITROGEN 18.9 mg/dL (7-18); CO2 27 mmol/L (21-32); GLUCOSE,RANDOM 91 mg/dL (74-106)
[2021-05-24 17:21] LABS: CREATININE 1.4 mg/dL (0.55-1.3); SGOT/AST 77 U/L (15-37)
[2021-05-24 17:23] LABS: BILIRUBIN,TOTAL 0.6 mg/dL (0.2-1); TOT PROT 7.2 g/dl (6.4-8.2)
[2021-05-24 17:24] LABS: ALK PHOS 65 U/L (45-117)
[2021-05-24 17:27] LABS: ANION GAP 4 MMOL/L (8-16); SGPT/ALT 28 U/L (13-61)
[2021-05-24 17:45] LABS: EPI CELLS 30 /uL (0-25.1); HYALINE CASTS 3 /uL (0-3.1); PH,URINE 5.5 (5.0-8.0); URINE APPEARANCE CLEAR; URINE BACTERIA 70 /uL (0-1359); URINE BILIRUBIN NEGATIVE (NEGATIVE); URINE COLOR YELLOW; URINE GLUCOSE (UA) NEGATIVE (NEGATIVE); URINE KETONE NEGATIVE (NEGATIVE); URINE LEUK ESTERASE TRACE (NEGATIVE); URINE NITRITE NEGATIVE (NEGATIVE); URINE PROTEIN NEGATIVE (NEGATIVE); URINE RBC 6 /uL (0-23.9); URINE UROBILINOGEN 0.2 mg/dL (0.2-1.0); URINE WBC 15 /uL (0-25.8)
[2021-05-24 19:22] LABS: CALCIUM 9.2 mg/dL (8.5-10.1)
[2021-05-24 19:23] LABS: BLOOD UREA NITROGEN 22.1 mg/dL (7-18)
[2021-05-24 19:26] LABS: CREATININE 1.5 mg/dL (0.55-1.3)
[2021-05-25] MEDS ORDERED: ACETAMINOPHEN 325 MG TABLET (FP) PO PRN (00:31)
[2021-05-25] MEDS ORDERED: DOCUSATE SODIUM 100 MG CAPSULE (FP) PO SCH (00:45)
[2021-05-25] MEDS ORDERED: MINERAL OIL ENEMA 133 ML ENEMA RC ONE (00:46)
[2021-05-25] MEDS ORDERED: DOCUSATE SODIUM 100 MG CAPSULE (FP) PO ONE (01:29)
[2021-05-25] MEDS ORDERED: ENOXAPARIN NA (PORCINE) 40 MG/0.4 ML DISP.SYRIN SQ ONE (03:33)
[2021-05-25] MEDS: DEXTROSE 5%-WATER - 1,000 ML IV SCH ×2 (03:37→17:35)
[2021-05-25] MEDS: ENOXAPARIN NA (PORCINE) 40 MG/0.4 ML DISP.SYRIN SQ SCH ×2 (03:37→11:17)
[2021-05-25] MEDS ORDERED: CEFTRIAXONE 1 GM in DEXTROSE 5%-WATER - 50 ML IVPB ONE (11:00)
[2021-05-25 11:02] LABS: BASO % 0.4 % (0-2.0); EOS % 0.2 % (0-4.5); HEMATOCRIT 35.6 % (32.4-45.2); HEMOGLOBIN 11.6 GM/dL (10.7-15.3); LYMPH % 17.9 % (8-40); MCH 29.9 pg (25.7-33.7); MCHC 32.6 g/dl (32.0-36.0); MEAN CELL VOLUME 91.6 fl (80-96); MONO % 5.6 % (3.8-10.2); NEUT % 75.9 % (42.8-82.8); PLATELET COUNT 239 10^3/uL (134-434); RBC 3.89 M/mm3 (3.60-5.2); RDW 15.3 % (11.6-15.6); WHITE BLOOD COUNT 9.3 K/mm3 (4.0-10.0)
[2021-05-25] MEDS ORDERED: cefTRIAXone SODIUM 1 GM VIAL ONE (11:12)
[2021-05-25] MEDS ORDERED: DEXTROSE 5%-WATER - 50 ML IVPB ONE (11:13)
[2021-05-25] MEDS: levETIRAcetam 500 MG TABLET (FP) PO SCH ×2 (11:17→21:25)
[2021-05-25] MEDS: PARoxetine HCL 10 MG TABLET PO SCH (11:18)
[2021-05-25] MEDS: PANTOPRAZOLE 20 MG TABLET PO SCH (11:18)
[2021-05-25 11:35] LABS: CALCIUM 8.9 mg/dL (8.5-10.1)
[2021-05-25 11:39] LABS: CREATININE 1.1 mg/dL (0.55-1.3)
[2021-05-25] MEDS ORDERED: ALPRAZolam 0.25 MG TABLET PO PRN (11:49)
[2021-05-25] MEDS: POLYETHYLENE GLYCOL (HEALTHYLAX) 3350 17 GM PACKET PO SCH ×2 (13:55→21:25)
[2021-05-25] MEDS ORDERED: DOCUSATE NA 100 MG/10 ML UNIT-DOSE CUPS PO SCH (20:00)
[2021-05-25] MEDS ORDERED: MIRTAZAPINE 15 MG TABLET (FP) PO SCH (22:00)
[2021-05-26] MEDS: DEXTROSE 5%-WATER - 1,000 ML IV SCH (04:01)
[2021-05-26] MEDS: POLYETHYLENE GLYCOL (HEALTHYLAX) 3350 17 GM PACKET PO SCH (06:41)
[2021-05-26 07:38] LABS: CALCIUM 8.2 mg/dL (8.5-10.1)
[2021-05-26 07:39] LABS: BLOOD UREA NITROGEN 4.6 mg/dL (7-18)
[2021-05-26 07:43] LABS: CREATININE 0.8 mg/dL (0.55-1.3)
[2021-05-26 08:38] LABS: BASO % 0.2 % (0-2.0); EOS % 0.5 % (0-4.5); HEMATOCRIT 32.1 % (32.4-45.2); HEMOGLOBIN 10.9 GM/dL (10.7-15.3); LYMPH % 27.1 % (8-40); MCH 30.8 pg (25.7-33.7); MEAN CELL VOLUME 90.7 fl (80-96); MEAN PLT VOLUME 8.9 fl (7.5-11.1); MONO % 8.1 % (3.8-10.2); NEUT % 64.1 % (42.8-82.8); PLATELET COUNT 194 10^3/uL (134-434); RBC 3.54 M/mm3 (3.60-5.2); RDW 15.2 % (11.6-15.6); WHITE BLOOD COUNT 7.7 K/mm3 (4.0-10.0)
[2021-05-26] MEDS ORDERED: D5-1/2NS+20 MEQ KCL - 20 MEQ/1,000 ML INFUS.BAG IV SCH (09:00)
[2021-05-26] MEDS: KCL 10 MEQ IVPB 10 MEQ/100 ML INFUS.BAG IVPB SCH ×3 (09:38→12:14)
[2021-05-26] MEDS: ENOXAPARIN NA (PORCINE) 40 MG/0.4 ML DISP.SYRIN SQ SCH ×2 (09:39→10:09)
[2021-05-26] MEDS: D5-NS + 20 MEQ KCL - 20 MEQ/1,000 ML INFUS.BAG IV SCH (10:58)
[2021-05-26] MEDS: levETIRAcetam 500 MG TABLET (FP) PO SCH (11:25)
[2021-05-26] MEDS: PARoxetine HCL 10 MG TABLET PO SCH (11:25)
[2021-05-26] MEDS: PANTOPRAZOLE 20 MG TABLET PO SCH (11:25)
[2021-05-26] MEDS ORDERED: ALPRAZolam 0.25 MG TABLET PO PRN (12:03)
[2021-05-26] MEDS: PANTOPRAZOLE SODIUM 40 MG VIAL IVPUSH SCH (14:02)
[2021-05-26] MEDS: levETIRAcetam 500 MG/5 ML INJECTION VIAL IVPB SCH ×2 (14:06→21:56)
[2021-05-26 16:32] VITALS: BMI 22.1
[2021-05-27] MEDS: POLYETHYLENE GLYCOL (HEALTHYLAX) 3350 17 GM PACKET PO SCH (07:53)
[2021-05-27 08:22] LABS: BASO % 0.1 % (0-2.0); EOS % 0.2 % (0-4.5); HEMOGLOBIN 9.5 GM/dL (10.7-15.3); LYMPH % 25.2 % (8-40); MCH 30.2 pg (25.7-33.7); MCHC 32.8 g/dl (32.0-36.0); MEAN CELL VOLUME 91.9 fl (80-96); MEAN PLT VOLUME 9.9 fl (7.5-11.1); NEUT % 66.5 % (42.8-82.8); PLATELET COUNT 176 10^3/uL (134-434); RBC 3.16 M/mm3 (3.60-5.2); RDW 15.4 % (11.6-15.6); WHITE BLOOD COUNT 6.5 K/mm3 (4.0-10.0)
[2021-05-27] MEDS: KCL 10 MEQ IVPB 10 MEQ/100 ML INFUS.BAG IVPB SCH ×3 (08:30→11:01)
[2021-05-27 08:42] LABS: BLOOD UREA NITROGEN 6.1 mg/dL (7-18); CALCIUM 7.8 mg/dL (8.5-10.1)
[2021-05-27 08:46] LABS: CREATININE 0.9 mg/dL (0.55-1.3)
[2021-05-27] MEDS: D5-NS + 20 MEQ KCL - 20 MEQ/1,000 ML INFUS.BAG IV SCH (10:58)
[2021-05-27] MEDS: PANTOPRAZOLE SODIUM 40 MG VIAL IVPUSH SCH (10:59)
[2021-05-27] MEDS: ENOXAPARIN NA (PORCINE) 40 MG/0.4 ML DISP.SYRIN SQ SCH (11:00)
[2021-05-27] MEDS: levETIRAcetam 500 MG/5 ML INJECTION VIAL IVPB SCH ×2 (11:00→21:43)
[2021-05-27] MEDS: DEXTROSE 5%-0.45% SALINE 1,000 ML IV SCH (11:09)
[2021-05-27] MEDS: ACETAMINOPHEN 325 MG TABLET (FP) PO PRN (14:51)
[2021-05-28] MEDS: levETIRAcetam 500 MG/5 ML INJECTION VIAL IVPB SCH ×2 (10:53→21:26)
[2021-05-28] MEDS: ENOXAPARIN NA (PORCINE) 40 MG/0.4 ML DISP.SYRIN SQ SCH (10:53)
[2021-05-28] MEDS: PANTOPRAZOLE SODIUM 40 MG VIAL IVPUSH SCH (10:53)
[2021-05-28] MEDS: DEXTROSE 5%-0.45% SALINE 1,000 ML IV SCH (11:26)
[2021-05-28] MEDS: ACETAMINOPHEN 325 MG TABLET (FP) PO PRN (16:52)
[2021-05-29] MEDS: DEXTROSE 5%-0.45% SALINE 1,000 ML IV SCH ×2 (02:11→14:43)
[2021-05-29 09:58] LABS: BLOOD UREA NITROGEN 8.5 mg/dL (7-18); CALCIUM 7.9 mg/dL (8.5-10.1)
[2021-05-29 10:01] LABS: CREATININE 0.9 mg/dL (0.55-1.3)
[2021-05-29] MEDS: levETIRAcetam 500 MG/5 ML INJECTION VIAL IVPB SCH ×2 (10:37→21:06)
[2021-05-29] MEDS: PANTOPRAZOLE SODIUM 40 MG VIAL IVPUSH SCH (10:37)
[2021-05-29] MEDS: ENOXAPARIN NA (PORCINE) 40 MG/0.4 ML DISP.SYRIN SQ SCH (10:38)
[2021-05-29] MEDS: ACETAMINOPHEN 325 MG TABLET (FP) PO PRN (19:46)
[2021-05-30] MEDS: DEXTROSE 5%-0.45% SALINE 1,000 ML IV SCH (06:08)
[2021-05-30] MEDS: PANTOPRAZOLE SODIUM 40 MG VIAL IVPUSH SCH (11:09)
[2021-05-30] MEDS: levETIRAcetam 500 MG/5 ML INJECTION VIAL IVPB SCH ×2 (11:09→21:11)
[2021-05-30] MEDS: ENOXAPARIN NA (PORCINE) 40 MG/0.4 ML DISP.SYRIN SQ SCH (11:09)
[2021-05-30] MEDS ORDERED: DEXTROSE 5%-0.45% SALINE 1,000 ML IV SCH (13:40)
[2021-05-31] MEDS: ENOXAPARIN NA (PORCINE) 40 MG/0.4 ML DISP.SYRIN SQ SCH (09:42)
[2021-05-31] MEDS: levETIRAcetam 500 MG/5 ML INJECTION VIAL IVPB SCH ×2 (09:42→22:36)
[2021-05-31] MEDS: PANTOPRAZOLE SODIUM 40 MG VIAL IVPUSH SCH (09:42)
[2021-05-31 09:52] LABS: BLOOD UREA NITROGEN 7.3 mg/dL (7-18); CALCIUM 8.2 mg/dL (8.5-10.1)
[2021-05-31 09:55] LABS: CREATININE 0.7 mg/dL (0.55-1.3)
[2021-05-31 09:57] LABS: BILIRUBIN,TOTAL 0.2 mg/dL (0.2-1); TOT PROT 5.5 g/dl (6.4-8.2)
[2021-05-31 09:59] LABS: ALBUMIN 2.3 g/dl (3.4-5.0)
[2021-06-01] MEDS ORDERED: AMINO ACIDS 4.25%/D5W 1,000 ML IV SCH
[2021-06-01 08:51] LABS: BLOOD UREA NITROGEN 7.8 mg/dL (7-18); CALCIUM 8.7 mg/dL (8.5-10.1)
[2021-06-01 08:55] LABS: CREATININE 0.7 mg/dL (0.55-1.3)
[2021-06-01] MEDS: SENNOSIDES 8.6MG TABLET (FP) PO SCH ×2 (11:02→21:16)
[2021-06-01] MEDS: PANTOPRAZOLE SODIUM 40 MG VIAL IVPUSH SCH (11:02)
[2021-06-01] MEDS: levETIRAcetam 500 MG/5 ML INJECTION VIAL IVPB SCH ×2 (11:02→21:15)
[2021-06-01] MEDS: DOCUSATE SODIUM 100 MG CAPSULE (FP) PO SCH (21:15)
[2021-06-02 09:17] LABS: CALCIUM 8.9 mg/dL (8.5-10.1)
[2021-06-02 09:19] LABS: BLOOD UREA NITROGEN 9.4 mg/dL (7-18)
[2021-06-02 09:21] LABS: CREATININE 0.7 mg/dL (0.55-1.3)
[2021-06-02] MEDS: levETIRAcetam 500 MG/5 ML INJECTION VIAL IVPB SCH ×2 (09:21→22:27)
[2021-06-02] MEDS: SODIUM PHOSPHATE/NA BIPHOS 133 ML ENEMA RC SCH ×3 (09:21→15:41)
[2021-06-02] MEDS: PANTOPRAZOLE SODIUM 40 MG VIAL IVPUSH SCH (09:22)
[2021-06-02] MEDS: SENNOSIDES 8.6MG TABLET (FP) PO SCH ×2 (09:22→22:32)
[2021-06-02] MEDS: DOCUSATE SODIUM 100 MG CAPSULE (FP) PO SCH (22:32)
[2021-06-03] MEDS: levETIRAcetam 500 MG/5 ML INJECTION VIAL IVPB SCH ×2 (09:06→21:31)
[2021-06-03] MEDS: SENNOSIDES 8.6MG TABLET (FP) PO SCH ×2 (09:06→21:31)
[2021-06-03] MEDS: PANTOPRAZOLE SODIUM 40 MG VIAL IVPUSH SCH (09:06)
[2021-06-03 11:26] LABS: BLOOD UREA NITROGEN 12.2 mg/dL (7-18); CALCIUM 8.7 mg/dL (8.5-10.1); CREATININE 0.9 mg/dL (0.55-1.3)
[2021-06-03] MEDS: DOCUSATE SODIUM 100 MG CAPSULE (FP) PO SCH ×2 (21:31→21:44)
[2021-06-04] MEDS: SENNOSIDES 8.6MG TABLET (FP) PO SCH ×2 (10:56→22:43)
[2021-06-04 11:40] LABS: BLOOD UREA NITROGEN 10.9 mg/dL (7-18); CALCIUM 8.6 mg/dL (8.5-10.1)
[2021-06-04] MEDS ORDERED: KCL 10 MEQ IVPB 10 MEQ/100 ML INFUS.BAG IVPB SCH (12:45)
[2021-06-04] MEDS ORDERED: POTASSIUM CHLORIDE ORAL LIQUID 20 MEQ/15 ML PO ONE (12:45)
[2021-06-04] MEDS: PANTOPRAZOLE SODIUM 40 MG VIAL IVPUSH SCH (13:37)
[2021-06-04] MEDS: levETIRAcetam 500 MG/5 ML INJECTION VIAL IVPB SCH (13:37)
[2021-06-04] MEDS: levETIRAcetam 500 MG TABLET (FP) PO SCH ×2 (13:54→22:43)
[2021-06-04] MEDS: PANTOPRAZOLE 40 MG TABLET PO SCH (13:54)
[2021-06-04] MEDS: DOCUSATE SODIUM 100 MG CAPSULE (FP) PO SCH (22:43)
[2021-06-04] MEDS: ACETAMINOPHEN 325 MG TABLET (FP) PO PRN (22:44)
[2021-06-05] MEDS: SENNOSIDES 8.6MG TABLET (FP) PO SCH ×2 (09:18→21:55)
[2021-06-05] MEDS: PANTOPRAZOLE 40 MG TABLET PO SCH (09:18)
[2021-06-05] MEDS: levETIRAcetam 500 MG TABLET (FP) PO SCH ×2 (09:18→21:54)
[2021-06-05 10:47] LABS: CALCIUM 8.9 mg/dL (8.5-10.1)
[2021-06-05 10:48] LABS: ALBUMIN 2.5 g/dl (3.4-5.0); BLOOD UREA NITROGEN 11.8 mg/dL (7-18); MAGNESIUM 2.3 mg/dL (1.8-2.4)
[2021-06-05 10:51] LABS: CREATININE 0.9 mg/dL (0.55-1.3); PHOSPHOROUS 2.6 mg/dL (2.5-4.9)
[2021-06-05 10:52] LABS: BILIRUBIN,TOTAL 0.3 mg/dL (0.2-1); TOT PROT 6.2 g/dl (6.4-8.2)
[2021-06-05] MEDS: DOCUSATE SODIUM 100 MG CAPSULE (FP) PO SCH (21:55)
[2021-06-06 07:18] VITALS: BP 112/69; PULSE 72; TEMP 97.7
[2021-06-06] MEDS: levETIRAcetam 500 MG TABLET (FP) PO SCH (09:09)
[2021-06-06] MEDS: PANTOPRAZOLE 40 MG TABLET PO SCH (09:09)
[2021-06-06] MEDS: SENNOSIDES 8.6MG TABLET (FP) PO SCH (09:12)
[2021-06-06] MEDS ORDERED: levETIRAcetam 500 MG/5 ML ORAL SOLUTION (UNIT-DOSE CUPS) PO SCH (10:30)
[2021-06-06] MEDS ORDERED: PANTOPRAZOLE SOD 40 MG SUSPENSION PACKET PO SCH (10:30)
== END 2021-06-06 12:30 | disposition home health service (06) | DRG 884 ==
LOC: JER 13:44 → JERBED 23:58 → J5S 05-25 06:22
PROVIDERS: ADMIT Internal Medicine; ATTEND Family Medicine
DX: F03.90 Unspecified dementia, unspecified severity, without behavioral disturbance, psychotic disturbance, mood disturbance, and anxiety (principal); R53.2 Functional quadriplegia; I69.354 Hemiplegia and hemiparesis following cerebral infarction affecting left non-dominant side; N17.9 Acute kidney failure, unspecified; E87.0 Hyperosmolality and hypernatremia; G40.909 Epilepsy, unspecified, not intractable, without status epilepticus; K56.41 Fecal impaction; K21.9 Gastro-esophageal reflux disease without esophagitis; F41.8 Other specified anxiety disorders; R62.7 Adult failure to thrive; E86.0 Dehydration; R63.30 Feeding difficulties, unspecified; E87.5 Hyperkalemia; I45.10 Unspecified right bundle-branch block; R63.0 Anorexia; Z68.22 Body mass index [BMI] 22.0-22.9, adult; M62.81 Muscle weakness (generalized); R79.89 Other specified abnormal findings of blood chemistry; R41.82 Altered mental status, unspecified; N28.1 Cyst of kidney, acquired; E87.6 Hypokalemia; R26.81 Unsteadiness on feet; D72.829 Elevated white blood cell count, unspecified; I12.9 Hypertensive chronic kidney disease with stage 1 through stage 4 chronic kidney disease, or unspecified chronic kidney disease; N18.9 Chronic kidney disease, unspecified
CPT/HCPCS: 36415; 70450-TC; 71045-TC-FY; 74021-TC-FY; 74176-TC; 76775-TC; 80048; 80053; 81003; 82272; 82803; 82962; 83735; 84100; 84484; 85025; 87040; 87077; 87086; 93005; 93010; 97161-GP; 99285-25; C9803-CS; U0003; U0005

== ENCOUNTER 2022-09-08 19:00 | Emergency (ER) | payer OTHER ==
[2022-09-08 19:33] VITALS: TEMP 98.5; BMI 15.9
[2022-09-08 20:40] LABS: BASO % 0.7 % (0-2.0); EOS % 0.4 % (0-4.5); LYMPH % 40.4 % (8-40); MCH 30.5 pg (25.7-33.7); MCHC 33.3 g/dl (32.0-36.0); MEAN CELL VOLUME 91.7 fl (80-96); MONO % 9.4 % (3.8-10.2); NEUT % 49.1 % (42.8-82.8); PLATELET COUNT 219 10^3/uL (134-434); RDW 15.2 % (11.6-15.6); WHITE BLOOD COUNT 8.1 K/mm3 (4.0-10.0)
[2022-09-08 20:54] LABS: URINE APPEARANCE CLOUDY; URINE BILIRUBIN NEGATIVE (NEGATIVE); URINE COLOR YELLOW; URINE GLUCOSE (UA) NEGATIVE (NEGATIVE); URINE KETONE NEGATIVE (NEGATIVE); URINE LEUK ESTERASE NEGATIVE (NEGATIVE); URINE NITRITE NEGATIVE (NEGATIVE); URINE PROTEIN NEGATIVE (NEGATIVE); URINE UROBILINOGEN 0.2 mg/dL (0.2-1.0)
[2022-09-08 20:59] LABS: CHLORIDE 108 mmol/L (98-107); POTASSIUM 4.5 mmol/L (3.5-5.1); SODIUM 144 mmol/L (136-145)
[2022-09-08 21:01] LABS: CALCIUM 9.5 mg/dL (8.5-10.1)
[2022-09-08 21:02] LABS: ANION GAP 7 MMOL/L (8-16); BLOOD UREA NITROGEN 15.2 mg/dL (7-18); CO2 29 mmol/L (21-32); GLUCOSE,RANDOM 105 mg/dL (74-106)
[2022-09-08 21:05] LABS: CREATININE 0.9 mg/dL (0.55-1.3); SGOT/AST 14 U/L (15-37); SGPT/ALT 22 U/L (13-61)
[2022-09-08 21:07] LABS: BILIRUBIN,TOTAL < 0.1 mg/dL (0.2-1); TOT PROT 6.6 g/dl (6.4-8.2)
[2022-09-08 21:08] LABS: ALK PHOS 62 U/L (45-117)
[2022-09-08] MEDS ORDERED: LORazepam 2 MG/ML SDV VIAL IVPUSH ONE (22:09)
[2022-09-08 23:20] VITALS: BP 124/67; PULSE 68; RESP 18
== END 2022-09-08 23:39 | disposition home or self-care (01) ==
LOC: JER 19:00
PROC: 0HQ1XZZ Repair Face Skin, External Approach (ICD-10-PCS; principal; 2022-09-08)
DX: S01.81XA Laceration without foreign body of other part of head, initial encounter (principal); R53.1 Weakness; W06.XXXA Fall from bed, initial encounter
CPT/HCPCS: 36415; 70450-TC; 71045-TC-FY; 72125-TC; 80053; 81003; 84484; 85025; 87086; 93005; 93010; 99285-25